=== PATIENT | female | born 1930 | race Caucasian/White ===

== ENCOUNTER → 2016-10-30 | Day surgery (SDC) | payer OTHER ==
[~2016-10-30] VITALS: Ht 165.1 cm; Wt 59.0 kg
[~2016-10-30] MED LIST: AMIODARONE PO; AMIODARONE200 MG PO; ATORVASTATIN CA20 MG PO; CLOPIDOGREL75 M1 PO; COLACE100 M1 PO; FERROUS SULFAT325 M3 PO; FLEXERIL10 MG PO; FUROSEMIDE20 M1 PO; HYDRALAZINE HCL10 M1 PO; HYDRALAZINE HCL25 M1 PO; HYDROCODON-ACE1 EAC2 PO; HYDROCODONE/ACE1 TA1 PO; HYDROXYZINE HCL50 M1 PO; LEVOTHYROXINE112 MCG PO; MYRBETRIQ50 M1 PO; NORVASC 5MG TAB5 MG PO; PLAVIX 75MG TAB75 MG PO
--- NOTE | 2016-10-30 14:40 | Operative Report ---
Operative/Inv Procedure Report Surgery Date: 10/30/16 Name of Procedure: Aortogram, bilateral pelvic and bilateral lower extremity angiogram, intravascular ultrasound of the femoral popliteal and below knee arterial segments, right SFA angioplasty 3 with a Lutonix 5 & 6 mm drug-coated below, Exoseal, ultrasound guidance for vascular access Pre-Operative Diagnosis: Right leg atherosclerosis with ulceration Post-Operative Diagnosis: Same Estimated Blood Loss: less than 50ml Surgeon/Tool And Equipment Rental Clerk: LUZ MURRAY MD Anesthesia: moderate sedation Complications: None Operative Indication: 86-year-old female with bilateral nonhealing leg ulcerations and peripheral arterial disease. Bilateral angiography and right lower extremity angiography is indicated for intention to treat. Consent obtained from the patient's and risks benefits and alternatives explained including bleeding, infection, nerve injury, pseudoaneurysm and . She decided to proceed with intervention. Operative/Procedure Note Note: Patient brought to operating room. Patient laid supine on table. The left femoral artery selected access. It was entered using ultrasound guidance. A 5 Mozambican coaxial dilator system and 5 Mozambican sheath was placed. A catheter was advanced into the aorta and an aortogram and bilateral iliofemoral angiogram with runoff was performed. The right leg and distal popliteal artery on the right was catheterized for intervention. The patient was then bolused with a Argatroban/direct thrombin inhibitor due to her history of heparin-induced thrombocytopenia. Aortography demonstrates a tortuous aortoiliofemoral segment. There is calcification but no hemodynamic significant stenosis. Right lower extremity angiography demonstrates a patent common femoral artery. The profunda femoris and SFA are patent. The proximal SFA demonstrates 2 areas of moderate to severe stenosis. The distal SFA demonstrates another area of moderate to severe stenosis. The above and below-knee popliteal artery is patent. There is 2 vessel runoff to the patient's right leg. The arteries are diminutive distally. Left lower extremity angiography demonstrates a patent left common femoral artery. The proximal and mid superficial femoral artery are patent. There is a stent in the mid segment. This demonstrates only mild in-stent restenosis. The rest of the arterial tree is within normal limits and without significant stenosis. The decision was made to intervene based on the angiographic results. The stiff Glidewire was placed distally and a 6 Mozambican sheath was placed into the right popliteal segment. The lesions were treated with 5 and 6 mm Lutonix AMIE. A small dissection was noted. An intravascular ultrasound catheter was placed from the popliteal artery into the superficial femoral artery. This demonstrates no hemodynamically significant dissection or stenosis. Completion arteriography now demonstrates in-line flow to the foot. The catheter, sheath and wire systems were then removed. A closure device was used to seal the artery. The patient tolerated the procedure well.
--- NOTE | 2016-10-30 16:48 | RADIOLOGY REPORT ---
EXAMINATION: XR FEMUR, BILATERAL CLINICAL INFORMATION: C-arm fluoroscopic imaging support was provided to the operating room for arteriography. COMPARISON: None TECHNIQUE: Multiple fluoroscopy images of the lower abdomen, pelvis, femurs and legs were obtained during performance of lower extremity arteriography by Dr. Simpson. FLUOROSCOPY TIME: 18 minutes, 22 seconds. FINDINGS: Please refer to Dr. Simpson's operative report regarding the indications for the arteriography exam, intraoperative findings and any interventions performed. IMPRESSION: Fluoroscopic imaging was support provided to the operating room.
== END ==
LOC: STS 02:06
DX: I70.238 Atherosclerosis of native arteries of right leg with ulceration of other part of lower leg (principal); L97.819 Non-pressure chronic ulcer of other part of right lower leg with unspecified severity; I70.203 Unspecified atherosclerosis of native arteries of extremities, bilateral legs; I10 Essential (primary) hypertension; Z86.73 Personal history of transient ischemic attack (TIA), and cerebral infarction without residual deficits; Z86.14 Personal history of Methicillin resistant Staphylococcus aureus infection; N28.9 Disorder of kidney and ureter, unspecified; E03.9 Hypothyroidism, unspecified
CPT/HCPCS: 73552-50; C1725; C1760; C2623; J2250; J2405; J7040; Q9967

== ENCOUNTER → 2017-01-04 | Day surgery (SDC) | payer OTHER ==
[~2017-01-04] VITALS: Ht 165.1 cm; Wt 56.7 kg
--- NOTE | 2017-01-05 09:51 | RADIOLOGY REPORT ---
EXAMINATION: XR FEMUR, LEFT/INTRAOPERATIVE FLUOROSCOPY CLINICAL INFORMATION: Bilateral arteriogram. Left superficial femoral artery angioplasty in OR. COMPARISON: None TECHNIQUE/FINDINGS: C-arm equipment was dedicated to the operating room for the performance of the arteriogram and angioplasty procedure. 19 cine loops were obtained and are archived in PACS. Please refer to operative notes for procedural detail. FLUOROSCOPY TIME: 12.23 minutes. IMPRESSION: Administrative dictation for intraoperative arteriogram and angioplasty procedure.
--- NOTE | 2017-01-05 12:37 | Operative Report ---
Operative/Inv Procedure Report Surgery Date: 01/04/17 Name of Procedure: Ultrasound guidance for access, aortogram, pelvic and bilateral lower extremity angiogram, left superficial femoral artery angioplasty with blue tonics 6 x 80 mm drug-coated balloon, intravascular ultrasound, additional vessel intravascular ultrasound, placement of closure device Pre-Operative Diagnosis: Peripheral arterial disease with nonhealing ulcers bilaterally Post-Operative Diagnosis: Same Estimated Blood Loss: less than 50ml Surgeon/Newspaper Photojournalist: LUZ MURRAY MD Anesthesia: local monitored anesthesi Complications: None Condition: Stable to recovery room Operative Indication: 86-year-old with nonhealing right and left lower extremity ankle ulcers. She has venous insufficiency and PAD. Recently she had a right leg intervention and now returns for the left leg. Consent was obtained from the patient. Operative/Procedure Note Note: Patient brought to the operating room and laid supine on the table. Timeout performed. Right femoral artery is selected for access. Artery punctured with a 21-gauge micropuncture needle. A wire advanced and a 5 Ecuadorean sheath is placed. A catheter was advanced into the aorta and an aortogram, left pelvic and bilateral lower extremity angiogram was performed. Intravascular ultrasound was also placed from the left iliac artery all the way down to the left popliteal artery. This was done due to significant calcification and need to further examine the patient's arterial circulation. Aortography and pelvic angiography demonstrates a patent aortoiliac segment. The vessels are calcified but widely patent. The vessels are slightly tortuous. Left lower extremity angiography demonstrates a patent common femoral and profunda femoris. The left SFA has been stented 2. There is a high-grade in- stent stenosis of the proximal portion of the patient's left SFA stents. The stent is patent. The popliteal artery is patent and the patient has 2 vessel runoff to the left foot. Right lower extremity angiography was also performed. This demonstrates a patent common femoral and superficial femoral artery. The profunda femoris is patent. The popliteal artery is patent. She has two-vessel runoff to the right foot. She has no significant disease on the right. Decision was made to treat her left SFA. A 6 Ecuadorean sheath was placed over the bifurcation. Intravascular ultrasound was performed and noted a 90% stenosis on the left side. A 6 mm x 80 Lutonix drug-coated balloon was then advanced into the area and insufflated. Completion angiography and intravascular ultrasound demonstrated only mild residual stenosis. Catheter sheaths and wires systems were then removed. A closure device was used to seal the artery. Patient tolerated the procedure well. CC: WASHINGTON BARRY DPM
== END ==
LOC: STS 01:05
DX: I70.243 Atherosclerosis of native arteries of left leg with ulceration of ankle (principal); I87.2 Venous insufficiency (chronic) (peripheral); I10 Essential (primary) hypertension; I48.0 Paroxysmal atrial fibrillation; E03.9 Hypothyroidism, unspecified; M19.90 Unspecified osteoarthritis, unspecified site
CPT/HCPCS: 73552; C1725; C1760; C2623; J0131; J2250; J7040; Q9967